=== PATIENT | male | born 1975 | race Caucasian/White ===

== ENCOUNTER 2017-03-25 21:12 | Emergency (ER) | payer BC, OTHER ==
[~2017-03-25] VITALS: Ht 170.2 cm; Wt 81.6 kg
[~2017-03-25 21:12] MED LIST: DOCU-150 PO; HYDR-2766 PO; IBUP400T18 PO; MESA800T2 PO
[2017-03-25] MEDS ORDERED: KETOROLAC 60 MG/2 ML VIAL. IM ONE (21:30)
[2017-03-25] MEDS ORDERED: HYDROmorphone PF 1 MG/ML DISP.SYRIN IM ONE (21:30)
[2017-03-25] MEDS ORDERED: diazePAM 5 MG TABLET PO ONE (21:30)
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
[2017-03-25 22:25] VITALS: BP 145/74
[2017-03-25] MEDS ORDERED: NAPR-683 PO (22:25)
[2017-03-25] MEDS ORDERED: DIAZ5TAB PO (22:25)
[2017-03-25] MEDS ORDERED: HYDR-2758 PO (22:25)
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
== END 2017-03-25 22:26 | disposition home or self-care (01) ==
LOC: ER 21:12
DX: S16.1XXA Strain of muscle, fascia and tendon at neck level, initial encounter (principal); S46.001A Unspecified injury of muscle(s) and tendon(s) of the rotator cuff of right shoulder, initial encounter; R20.2 Paresthesia of skin; F12.10 Cannabis abuse, uncomplicated; V49.9XXA Car occupant (driver) (passenger) injured in unspecified traffic accident, initial encounter; Y93.89 Activity, other specified; Y99.8 Other external cause status; Y92.488 Other paved roadways as the place of occurrence of the external cause
CPT/HCPCS: 72125; 73030; 96372; 99284; J1170; J1885

== ENCOUNTER 2017-06-16 04:29 | Emergency (ER) | payer OTHER ==
[~2017-06-16] VITALS: Ht 170.2 cm; Wt 79.9 kg
[~2017-06-16 04:29] MED LIST changes: +DIAZ5TAB PO; +HYDR-2758 PO; +NAPR-683 PO
--- NOTE | 2017-06-16 04:35 | PHYS DOC ---
Past History Past Medical History: Other Additional Past Medical Histor: UC Past Surgical History: No Surgical History Smoking: Non-smoker Alcohol Use: None Drug Use: Marijuana Adult General [facility] HPI Patient is a 41-year-old male presenting to the emergency department for evaluation of nausea vomiting diarrhea abdominal pain. Patient says that he has been feeling ill for approximately one week with fatigue and cough and he saw his primary care provider Dr. Jorge Wood 2 days ago and was prescribed amoxicillin prednisone and albuterol. He was diagnosed with bronchitis. Patient said that he went to the [employer] and had fish yesterday evening and was doing okay until approximately 4 hours prior to arrival started having abdominal pain nausea vomiting and diarrhea. The emesis is nonbloody nonbilious and his occurred approximately 5-6 times. Patient Review of Systems Review of Systems Constitutional: Denies fever or chills [] Eyes: Denies change in visual acuity, redness, or eye pain [] HENT: Denies nasal congestion or sore throat [] Respiratory: Denies cough or shortness of breath [] Cardiovascular: No additional information not addressed in HPI [] GI: Denies abdominal pain, nausea, vomiting, bloody stools or diarrhea [] : Denies dysuria or hematuria [] Musculoskeletal: Denies back pain or joint pain [] Integument: Denies rash or skin lesions [] Neurologic: Denies headache, focal weakness or sensory changes [] Endocrine: Denies polyuria or polydipsia [] All other systems were reviewed and found to be within normal limits, except as documented in this note. Allergies Allergies Allergies Coded Allergies Type Severity Reaction Last Updated Verified No Known Drug Allergies 06/24/13 No Physical Exam Physical Exam Constitutional: Well developed, well nourished, no acute distress, non-toxic appearance. [] HENT: Normocephalic, atraumatic, bilateral external ears normal, oropharynx moist, no oral exudates, nose normal. [] Eyes: PERRLA, EOMI, conjunctiva normal, no discharge. [] Neck: Normal range of motion, no tenderness, supple, no stridor. [] Cardiovascular:Heart rate regular rhythm, no murmur [] Lungs & Thorax: Bilateral breath sounds clear to auscultation [] Abdomen: Bowel sounds normal, soft, + diffuse tenderness, no rebound or guarding , no masses, no pulsatile masses. [] Skin: Warm, dry, no erythema, no rash. [] Back: No tenderness, no CVA tenderness. [] Extremities: No tenderness, no cyanosis, no clubbing, ROM intact, no edema. [] Neurologic: Alert and oriented X 3, normal motor function, normal sensory function, no focal deficits noted. [] EKG EKG [] Radiology/Procedures Radiology/Procedures [] [place] [address] IMAGING REPORT Signed PATIENT: NANCY PERDOMO ACCOUNT: [id number] : 1975 LOCATION: ER AGE: 41 SEX: M EXAM STATUS: PRE ER ORD. PHYSICIAN: JORGE DOBBS DO REASON: HEADACHE PROCEDURE: CT HEAD WO CONTRAST CT Head W/O Contrast: History: Headache Comparison: none Axial images were obtained without contrast. The goodman and white matter appears normal and symmetrical for the patients age. There is no mass effect, extraaxial fluid collections or hydrocephalus. There is no gross bleed. There is no focal loss of goodman-white matter distinction to suggest acute ischemia, i.e. stroke. There is contrast seen within the venous system from recent CT of the abdomen. Impression: No acute findings. RS Compliance Statement: One or more of the following individualized dose reduction techniques were utilized for this examination: 1. Automated exposure control 2. Adjustment of the mA and/or kV according to patient size 3. Use of iterative reconstruction technique Electronically signed by: Hiral Bhatti III, MD (06/16/2017 6:10 AM) [id number] [address] [address] IMAGING REPORT Signed PATIENT: NANCY PERDOMO ACCOUNT: [id number] : 1975 LOCATION: ER AGE: 41 SEX: M EXAM STATUS: PRE ER ORD. PHYSICIAN: JORGE DOBBS DO REASON: DIFFUSE PAIN, N,V,D PROCEDURE: CT ABD PELV W/ IV CONTRST ONLY CT SCAN OF THE ABDOMEN AND PELVIS WITH IV CONTRAST. History: Diffuse abdominal pain nausea vomiting and diarrhea Comparison:June 24, 2013. Procedure: Contiguous axial images of the abdomen and pelvis were performed after the administration of 75 cc of Omni 300 IV contrast and without oral contrast. CT Abdomen with contrast: Findings: Liver: Unremarkable Spleen: Unremarkable Pancreas: Unremarkable Adrenal Glands: Unremarkable Kidneys: Unremarkable There is no mass or lymphadenopathy. There is no free air. There is no free fluid. There is mild wall thickening of the colon without surrounding inflammation. Impression: No acute findings. End Impression CT Pelvis with Contrast: Findings: The urinary bladder appears normal. There is no free fluid. There is no lymphadenopathy. The appendix is normal. Impression: Mild pancolitis. This could be infectious such as pseudomonas colitis or could be inflammatory such as ulcerative colitis. There is no diverticulitis. There is no air in the wall to suggest ischemic colitis. RS Compliance Statement: One or more of the following individualized dose reduction techniques were utilized for this examination: 1. Automated exposure control 2. Adjustment of the mA and/or kV according to patient size 3. Use of iterative reconstruction technique Electronically signed by: Hiral Bhatti III, MD (06/16/2017 5:56 AM) [facility] DICTATED AND SIGNED BY: HIRAL BHATTI III, MD DATE: 06/16/17 0552 CC: JORGE WOOD MD; JORGE DOBBS DO ~ Course & Med Decision Making Course & Med Decision Making Patient presenting to the emergency department for evaluation of vomiting diarrhea and abdominal pain consistent with a gastroenteritis likely related to food ingestion yesterday. Given his symptoms will check labs CT treat symptoms and reassess. Labs ok, patient says that the initial toradol, fentanyl, zofran made his symptoms worse and now he has a headache. he says he has not had headaches before in the past. Will try benadryl, phenergan, GI cocktail and check head CT. Workup pending at time of shift change at 0600. Transfer of care to Dr. Castro. 0702: CT head and abdomen did not report acute finding except for pancolitis. Patient felt better after treatment in ER and tolerated oral intake and feels comfortable to go home. Patient psychiatric to follow with his primary care physician or return to emergency room if not getting better. I've spoken with the patient and/or caregivers. I've explained the patient's condition, diagnosis and treatment plan based on information available to me at this time. I've answered the patient's and/or caregivers questions and addressed any concerns. The patient and/or caregivers have a good understanding the patient's diagnosis, condition and treatment plan as can be expected at this point. Vital signs have been stabilized. The patient's condition is stable for discharge from the emergency department. The patient will pursue further outpatient evaluation with her primary care provider or other designated consulting physician as outlined in the discharge instructions. Patient and/or caregivers are agreeable to this plan of care and follow-up instructions have been explained in detail. The patient and/or caregivers have received these instructions in written format and expressed understanding of these discharge instructions. The patient and her caregivers are aware that if any significant change in condition or worsening of symptoms should prompt him to immediately return to this of the closest emergency department. If an emergent department is not readily available I would encourage him to call 911. Talaon Disclaimer Dragon Disclaimer This electronic medical record was generated, in whole or in part, using a voice recognition dictation system. Departure Departure: Impression: Primary Impression: Abdominal pain Additional Impressions: Nausea & vomiting Diarrhea Disposition: HOME, SELF-CARE (At 0704) Condition: IMPROVED Referrals: JORGE WOOD MD (PCP) Patient Instructions: Diet for Diarrhea, Adult, Viral Gastroenteritis Additional Instructions: Drink plenty of liquids Follow-up with your primary care physician in 3-5 days Return to ER if not getting better Scripts Hydrocodone Bit/Acetaminophen (NORCO 5-325 TABLET) 1 Each Tablet 1 TAB PO PRN Q6HRS Y for PAIN, #14 TAB 0 Refills Prov: FRANK CASTRO MD 06/16/17 Ondansetron (ZOFRAN ODT) 4 Mg Tab.rapdis 1 TAB SL Q8HRS, #15 TAB Prov: FRANK CASTRO MD 06/16/17 Problem Qualifiers Primary Impression: Abdominal pain Abdominal location: generalized Qualified Codes: R10.84 - Generalized abdominal pain JORGE DOBBS DO Jun 16, 2017 04:35 FRANK CASTRO MD Jun 16, 2017 06:18
[2017-06-16] MEDS ORDERED: ONDANSETRON ODT 4 MG TAB.RAPDIS ONE (04:38)
[2017-06-16] MEDS ORDERED: KETOROLAC 15 MG/ML VIAL. IV ONE (05:00)
[2017-06-16] MEDS ORDERED: KETOROLAC 30 MG/ML VIAL. IV ONE (05:00)
[2017-06-16] MEDS ORDERED: ONDANSETRON PF 4 MG/2 ML VIAL. IV ONE (05:00)
[2017-06-16] MEDS ORDERED: IV NORMAL SALINE 1,000ML 1,000 ML IV ONE (05:00)
[2017-06-16] MEDS ORDERED: KETOROLAC 15 MG/ML VIAL. ONE (05:01)
[2017-06-16 05:10] LABS: BASO % 0 % (0-3); EOS % 0 % (0-3); HEMATOCRIT 41.7 % (39.0-53.0); HEMOGLOBIN 14.6 g/dL (13.0-17.5); LYMPH # 1.8 x10^3/uL (1.0-4.8); LYMPH % 35 % (24-48); MEAN CORPUSCULAR HEMOGLOBIN 30 pg (25-35); MEAN CORPUSCULAR HGB CONC 35 g/dL (31-37); MEAN CORPUSCULAR VOLUME 86 fL (79-100); MONO # 0.5 x10^3/uL (0.0-1.1); MONO % 10 % (0-9); NEUT # 2.8 x10^3uL (1.8-7.7); NEUT % 54 % (31-73); PLATELET COUNT 211 x10^3/uL (140-400); RED BLOOD COUNT 4.84 x10^6/uL (4.30-5.70); WHITE BLOOD COUNT 5.2 x10^3/uL (4.0-11.0)
[2017-06-16] MEDS ORDERED: IOHEXOL 300 MG/ML 75 ML VIAL. IV ONE (05:15)
[2017-06-16] MEDS ORDERED: ONDANSETRON ODT 4 MG TAB.RAPDIS PO ONE (05:15)
[2017-06-16 05:23] LABS: ALBUMIN 3.6 g/dL (3.4-5.0); ALBUMIN/GLOBULIN RATIO 0.9 (1.0-1.7); CALCIUM 9.3 mg/dL (8.5-10.1); CREATININE 0.9 mg/dL (0.7-1.3); GFR 92.5; POTASSIUM 3.4 mmol/L (3.5-5.1); TOTAL BILIRUBIN 0.3 mg/dL (0.2-1.0); TOTAL PROTEIN 7.7 g/dL (6.4-8.2)
[2017-06-16] MEDS ORDERED: CONTRAST GIVEN MC PRN (05:30)
[2017-06-16] MEDS ORDERED: PROMETHAZINE 12.5 MG in IV NORMAL SALINE 50ML 50 ML IV STA (05:43)
[2017-06-16] MEDS ORDERED: diphenhydrAMINE 50 MG/ML VIAL IVP ONE (05:45)
[2017-06-16] MEDS ORDERED: LIDO:MAALOX 1:1 20 ML SINGLE DOSE. PO ONE (05:45)
[2017-06-16] MEDS ORDERED: IV NORMAL SALINE 50ML 50 ML ONE (05:51)
[2017-06-16] MEDS ORDERED: PROMETHAZINE 25 MG/ML VIAL IV ONE (05:52)
--- NOTE | 2017-06-16 06:00 | RAD ---
CT SCAN OF THE ABDOMEN AND PELVIS WITH IV CONTRAST. History: Diffuse abdominal pain nausea vomiting and diarrhea Comparison:June 24, 2013. Procedure: Contiguous axial images of the abdomen and pelvis were performed after the administration of 75 cc of Omni 300 IV contrast and without oral contrast. CT Abdomen with contrast: Findings: Liver: Unremarkable Spleen: Unremarkable Pancreas: Unremarkable Adrenal Glands: Unremarkable Kidneys: Unremarkable There is no mass or lymphadenopathy. There is no free air. There is no free fluid. There is mild wall thickening of the colon without surrounding inflammation. Impression: No acute findings. End Impression CT Pelvis with Contrast: Findings: The urinary bladder appears normal. There is no free fluid. There is no lymphadenopathy. The appendix is normal. Impression: Mild pancolitis. This could be infectious such as pseudomonas colitis or could be inflammatory such as ulcerative colitis. There is no diverticulitis. There is no air in the wall to suggest ischemic colitis. RS Compliance Statement: One or more of the following individualized dose reduction techniques were utilized for this examination: 1. Automated exposure control 2. Adjustment of the mA and/or kV according to patient size 3. Use of iterative reconstruction technique Electronically signed by: Herb Panda III, MD (06/16/2017 5:56 AM) [facility]
--- NOTE | 2017-06-16 06:13 | RAD ---
CT Head W/O Contrast: History: Headache Comparison: none Axial images were obtained without contrast. The goodman and white matter appears normal and symmetrical for the patients age. There is no mass effect, extraaxial fluid collections or hydrocephalus. There is no gross bleed. There is no focal loss of goodman-white matter distinction to suggest acute ischemia, i.e. stroke. There is contrast seen within the venous system from recent CT of the abdomen. Impression: No acute findings. RS Compliance Statement: One or more of the following individualized dose reduction techniques were utilized for this examination: 1. Automated exposure control 2. Adjustment of the mA and/or kV according to patient size 3. Use of iterative reconstruction technique Electronically signed by: Herb Panda III, MD (06/16/2017 6:10 AM) [facility]
[2017-06-16] MEDS ORDERED: ONDA4TAB10 SL (07:06)
[2017-06-16] MEDS ORDERED: HYDR-971 PO (07:06)
[2017-06-16 07:15] VITALS: BP 148/69
== END 2017-06-16 07:21 | disposition home or self-care (01) ==
LOC: ER 04:29
DX: R10.84 Generalized abdominal pain (principal); R11.2 Nausea with vomiting, unspecified; R19.7 Diarrhea, unspecified; F12.10 Cannabis abuse, uncomplicated
CPT/HCPCS: 36415; 70450; 74177; 80053; 83690; 83735; 85025; 96361; 96365; 96375; 99285; J1200; J1885; J2405; J2550; J3010; Q0162; Q9967; J7030

== ENCOUNTER → 2021-06-06 | Outpatient (CLI) | payer OTHER ==
[~2021-06-06] MED LIST changes: -DOCU-150 PO; +DOCU-158 PO; +HYDR-2155 PO; -HYDR-2758 PO; -HYDR-2766 PO; +HYDR-2769 PO; +HYDR-3165 PO; +ONDA4TAB10 SL
--- NOTE | 2021-06-06 13:59 | RAD ---
EXAM: Left elbow, 4 views. HISTORY: Pain. COMPARISON: None. FINDINGS: 4 views of the left elbow are obtained. There is no acute fracture, dislocation or subluxat ion. There is no joint effusion. There are tiny ossicles adjacent to the lateral epicondyles, likely degenerative or the sequela of remote injury. IMPRESSION: No acute osseous finding. Electronically signed by: Trang Lamas MD (06/06/2021 1:57 PM) [id number]
--- NOTE | 2021-06-06 14:58 | RAD ---
Study: XR SHOULDER 2+ VIEWS BILAT Indication: Shoulder pain. No recent injury. Comparison: Right shoulder radiographs 03/25/2017 Findings: Mild acromioclavicular joint arthrosis on the right and left. No significant glenohumeral joint arthr osis. Maintained acromiohumeral interval. Alignment is anatomic. No acute or subacute fracture. Impression: Right and left shoulders: Mild AC joint arthrosis. Relatively unremarkable glenohumeral joints. No fracture or malalignment. No rmal acromiohumeral interval. Electronically signed by: GERMAN MACHADO MD (06/06/2021 2:56 PM) [id number]
== END ==
LOC: RAD 13:01
PROVIDERS: ATTEND Physician Assistant
DX: M19.012 Primary osteoarthritis, left shoulder (principal); M19.011 Primary osteoarthritis, right shoulder; M25.521 Pain in right elbow; M25.522 Pain in left elbow
CPT/HCPCS: 73030-50; 73070-50